=== PATIENT | male | born 1990 | race Hispanic/Latino ===

== ENCOUNTER 2023-03-19 13:53 | Emergency (ER) | payer OTHER ==
[~2023-03-19] VITALS: Ht 185.4 cm; Wt 74.2 kg
[2023-03-19] MEDS ORDERED: PANT40TA29 PO (14:14)
[2023-03-19 15:41] VITALS: BP 133/79; TEMP 97.1; O2SAT 100
== END 2023-03-19 15:44 | disposition home or self-care (01) ==
LOC: M ED 13:53
DX: F41.0 Panic disorder [episodic paroxysmal anxiety] (principal); I45.10 Unspecified right bundle-branch block; I49.49 Other premature depolarization; K21.9 Gastro-esophageal reflux disease without esophagitis; F10.10 Alcohol abuse, uncomplicated; Z79.1 Long term (current) use of non-steroidal anti-inflammatories (NSAID)